=== PATIENT | male | born 2000 | race Two or more races ===

== ENCOUNTER 2024-03-01 17:31 | Emergency (ER) | payer OTHER ==
[2024-03-01 17:36] VITALS: BP 126/71; PULSE 60; RESP 18; TEMP 98; BMI 50.3
[2024-03-01] MEDS ORDERED: KETOROLAC TROMETHAMINE 30 MG/1 ML VIAL ONE (18:10)
[2024-03-01] MEDS: KETOROLAC TROMETHAMINE 30 MG/1 ML VIAL IM ONE (18:15)
[2024-03-01] MEDS ORDERED: BACITRACIN ZINC 15 GM TUBE TOPICAL OINTMENT ONE (18:19)
[2024-03-01] MEDS: BACITRACIN 0.9 GM PACKET TP ONE (18:37)
== END 2024-03-01 21:08 | disposition home or self-care (01) ==
LOC: JERFT 17:31
PROC: 3E0233Z Introduction of Anti-inflammatory into Muscle, Percutaneous Approach (ICD-10-PCS; principal; 2024-03-01)
DX: S60.812A Abrasion of left wrist, initial encounter (principal); M25.561 Pain in right knee; W00.0XXA Fall on same level due to ice and snow, initial encounter
CPT/HCPCS: 73110-TC-LT-FY; 73130-TC-LT-FY; 73562-TC-RT-FY; 99284-25